=== PATIENT | female | born 1975 | race Two or more races ===

== ENCOUNTER 2017-10-03 05:45 | Emergency (ER) | payer SELFPAY ==
[~2017-10-03] VITALS: Ht 162.6 cm; Wt 107.0 kg
[~2017-10-03 05:45] MED LIST: METF-440 PO
[2017-10-03 05:52] VITALS: BP 129/73
== END 2017-10-03 06:25 | disposition home or self-care (01) ==
LOC: ER 05:50
DX: L03.116 Cellulitis of left lower limb (principal); E11.9 Type 2 diabetes mellitus without complications; Z90.89 Acquired absence of other organs; Z98.890 Other specified postprocedural states; Z79.84 Long term (current) use of oral hypoglycemic drugs
CPT/HCPCS: 99283; A4606; Z7610